=== PATIENT | female | born 1955 | race Caucasian/White ===

== ENCOUNTER 2016-07-26 14:16 | Inpatient (IN) | payer MEDICARE ==
[2016-07-26] MEDS ORDERED: ASPIRIN (CHEWABLE) 81 MG TAB PO ONE (14:25)
[2016-07-26] MEDS ORDERED: IPRATROPIUM/ALBUTEROL 3 ML VIAL NEB ONE ×2 (14:25→17:00)
--- NOTE | 2016-07-26 14:50 | ED.PDOC ---
History of Present Illness - General Chief Complaint: Respiratory Problem Stated Complaint: dyspnea Time Seen by Provider: 07/26/16 14:20 Source: patient Exam Limitations: no limitations - History of Present Illness Initial Comments: Patient presents with increasing dyspnea for several days. Has COPD, denies cardiac hx. Says she was treated for pneumonia up until one week ago and believes that she still has it. Has chronic cough but no changes in that. Smokes 1-2 packs per day. She says she smoked more today than usual. No chest pain. Says she has had 3 strokes and hx of "blood clots" for which she takes Eloquis. Allergies/Adverse Reactions: Allergies NO KNOWN ALLERGY Allergy (Verified 03/06/16 19:13) Home Medications: Ambulatory Orders Albuterol Inhaler [Ventolin Hfa Inhaler] 1 puff INH QID PRN 11/10/15 Albuterol Sulfate Nebs [Proventil Nebs] 2.5 mg INH BID 11/10/15 Aspirin [Ryan Low Dose] 81 mg PO DAILY 11/10/15 Budes/Formoterol INH 160/4.5 [Symbicort Inhaler 160/4.5] 2 puff INH BID Lisinopril 10 mg PO DAILY 11/10/15 Mirtazapine [Remeron] 15 mg PO BEDTIME 11/10/15 Pravastatin Sodium 10 mg PO BEDTIME 11/10/15 QUEtiapine FUMARATE [SEROquel] 100 mg PO BEDTIME 11/10/15 Apixaban [Eliquis] 2.5 mg PO BID 03/06/16 Tramadol HCl 50 mg PO Q6HRS PRN 07/26/16 Past Medical History (General) - Patient Medical History Hx Stroke: Yes - last episode 2014 Hx of COPD: Yes Hx Cardiac Disorders: Yes - Hx DVT Hx Hypertension: Yes Hx Diabetes: No Hx Gastroesophageal Reflux: Yes Hx MRSA: Yes - R ankle wound MRSA Source:: Wound - Vaccination History Hx Influenza Vaccination: Yes - 2016 Hx Pneumococcal Vaccination: Yes - Social History Hx Tobacco Use: Yes - Quit 02/2016 Family Medical History - Family History Mother Family History: No Known Living Status: Physical Exam - Physical Exam General Appearance: Alert Ears, Nose, Throat: normal ENT inspection Neck: non-tender, full range of motion, supple Respiratory: wheezing, other - expiratory wheezing in all lung [place] Cardiovascular/Chest: tachycardia Peripheral Pulses: radial,right: 2+, radial,left: 2+, dorsalis pedis,right: 2+, dorsalis pedis,left: 2+ Gastrointestinal/Abdominal: normal bowel sounds, non tender, soft Extremity: non-tender, no pedal edema Neurologic: no motor/sensory deficits Skin Exam: normal color Lymphatic: no adenopathy Progress - Progress Progress: 07/26/16 16:57 EKG showed sinus tachycardia. Cardiac enzymes negative. CXR showed no acute disease. Patient given duonebs x two. ABG showed pO2 at 63 mmHg while on 3L of oxygen by NC. Solumedrol 125 mg IV x one given. Patient increased to 5L by NC. Admitted for hypoxia, tachycardia, and increased oxygen secondary to COPD exacerbation. Rocephin 1 gram IV x one given in ER. Laboratory Tests 07/26/16 07/26/16 14:47 15:32 WBC 11.7 H RBC 4.40 Hgb 13.9 Hct 43.1 MCV 98.1 MCH 31.6 H MCHC 32.2 L RDW 16.6 H Plt Count 304 MPV 5.9 L Absolute Neuts (auto) 7.90 H Absolute Lymphs (auto) 2.70 Absolute Monos (auto) 0.70 Absolute Eos (auto) 0.30 Absolute Basos (auto) 0.10 Neutrophils % 67.9 Lymphocytes % 22.9 Monocytes % 6.1 Eosinophils % 2.4 Basophils % 0.7 PT 10.8 INR 0.960 D-Dimer, Quantitative < 230 pCO2 42 pO2 63 L HCO3 27.6 ABG pH 7.440 ABG O2 Saturation 93.8 L ABG Base Excess 3.5 ABG Deoxyhemoglobin 6.1 H Oxyhemoglobin % 91.3 L Carboxyhemoglobin % 2.2 H Methemoglobin % Sat 0.5 Calc Total Hemoglobin 13.0 Sodium 137 Potassium 5.1 H Chloride 102 Carbon Dioxide 27 Anion Gap 13.1 BUN 20 H Creatinine 0.87 BUN/Creatinine Ratio 23.0 H Random Glucose 111 H Serum Osmolality 277.1 Calcium 9.0 Total Bilirubin 0.7 AST 24 ALT 26 Alkaline Phosphatase 70 Creatine Kinase 33 CK-MB (CK-2) 1.9 CK-MB (CK-2) % Not Reportable Troponin I < 0.02 B-Natriuretic Peptide 16.2 Serum Total Protein 6.4 Albumin 3.6 Globulin 2.8 Albumin/Globulin Ratio 1.3 Departure - Departure Clinical Impression: Hypoxemia, Obstructive chronic bronchitis with exacerbation, Tachycardia Disposition: Admit Patient Condition: Good Departure Forms: ED Discharge - Pt. Copy, Patient Portal Self Enrollment Diet: other - as per hospitalist Activity: increase activity as tolerated Home Medications: Ambulatory Orders Albuterol Inhaler [Ventolin Hfa Inhaler] 1 puff INH QID PRN 11/10/15 Albuterol Sulfate Nebs [Proventil Nebs] 2.5 mg INH BID 11/10/15 Aspirin [Ryan Low Dose] 81 mg PO DAILY 11/10/15 Budes/Formoterol INH 160/4.5 [Symbicort Inhaler 160/4.5] 2 puff INH BID Lisinopril 10 mg PO DAILY 11/10/15 Mirtazapine [Remeron] 15 mg PO BEDTIME 11/10/15 Pravastatin Sodium 10 mg PO BEDTIME 11/10/15 QUEtiapine FUMARATE [SEROquel] 100 mg PO BEDTIME 11/10/15 Apixaban [Eliquis] 2.5 mg PO BID 03/06/16 Tramadol HCl 50 mg PO Q6HRS PRN 07/26/16
--- NOTE | 2016-07-26 15:28 | RAD ---
EXAM DESCRIPTION: Chest,2 Views CLINICAL HISTORY: dyspnea, recent hx of pneumonia COMPARISON: Chest radiographs 03/06/2016. TECHNIQUE: PA, lateral views. FINDINGS: Lungs: Hyperinflation bilaterally. Minimally prominent interstitial markings. No consolidation. Pleural spaces: No pleural effusion or pneumothorax. Heart: No enlargement Pulmonary Vascularity: Not increased. Mediastinum: No widening. Aorta: Not tortuous. Bony Thorax/Spine: Decreased bone density. Multiple levels of disc space narrowing. Anterior endplate ridging. No acute bony abnormality. Monitoring leads on the chest. IMPRESSION: No radiographic evidence of acute cardiopulmonary disease. Chronic interstitial markings in the lungs and air trapping could indicate emphysema. Stable since February 2016. Electronically signed by: Devin Vazquez MD 07/26/2016 3:27 PM CDT
[2016-07-26] MEDS ORDERED: methylPREDNISolone SODIUM SUC 125 MG/2 ML VIAL IV ONE (15:30)
[2016-07-26] MEDS ORDERED: cefTRIAXone SODIUM 1 GM in SODIUM CHL 0.9% 50ML MIN-BAG+ 50 ML IVPB ONE (16:56)
[2016-07-26] MEDS ORDERED: SODIUM CHL 0.9% 50ML MIN-BAG+ 50 ML IVPB ONE (17:10)
[2016-07-26] MEDS ORDERED: cefTRIAXone SODIUM 1 GM VIAL ONE (17:10)
--- NOTE | 2016-07-26 18:20 | HP ---
SUPERVISING PHYSICIAN: Owen Odonnell M.D. CHIEF COMPLAINT: I couldn't breathe. HISTORY OF PRESENT ILLNESS: This is a 61 year-old female patient who presented to the Emergency Room today after increasing dyspnea over the last 4 days. She has a significant history of chronic obstructive pulmonary disease and was recently in [facility] for pneumonia. She was discharged on some oral steroids and antibiotics. She moved to [place] about 6 months ago. She said she just never quite got over her upper respiratory infection when she left there. In the Emergency Room, her ABGs showed a PO2 of 63 with PCO2 of 42 and 93% oxygen saturation on her blood gas. Vital signs: Heart rate went up as high as 120 and oxygen saturations got as low as 94 on 2 liters nasal cannula. She was tachypneic with a respiratory rate of 24. She received breathing treatments as well as IV steroids. WBCs were elevated at 11.7, potassium was slightly high at 5.1 with glucose 111. All of the rest of her chemistries were within normal limits. Cardiac enzymes were negative. I was called for hospital admission. PAST MEDICAL HISTORY: 1. Hypertension. 2. Cerebrovascular accident times 4 with right sided weakness and memory loss. 3. Chronic obstructive pulmonary disease. 4. Pneumonia. 5. Asthma. 6. Arthritis. 7. Chronic back pain. 8. Hepatitis C. PAST SURGICAL HISTORY: 1. Tubal ligation. OUTPATIENT MEDICATIONS: Per the EMR and awaiting verification. ALLERGIES: NO KNOWN DRUG ALLERGIES. CODE STATUS: DO NOT RESUSCITATE. SOCIAL HISTORY: She just recently moved to [place] from [place]. She lives with her boyfriend for about 12 years. She smokes 1/2 pack of cigarettes daily. She drinks 1 to 2 bottles of Vodka weekly. She has a remote history of IV drug use. She stopped using IV drugs 20 years ago. REVIEW OF SYSTEMS: Denies fever, chills or fatigue. HEENT: Denies sinus symptoms, ear pain, vision changes or sore throat. CARDIAC: Denies chest pain, palpitations or tachycardia. RESPIRATORY: Complains of cough, wheezing and dyspnea. ABDOMEN: Denies abdominal pain, nausea, vomiting or diarrhea. GENITOURINARY: Denies hematuria, dysuria or nocturia. NEUROLOGIC: Denies headaches, dizziness or seizures. PHYSICAL EXAMINATION: VITAL SIGNS: She is afebrile, heart rate between 110 and 120, blood pressure 146/93, respiratory rate has ranged between 16 and 24, O2 sat has ranged between 94 and 98%. GENERAL: This is a 61 year-old female patient who is lying in her hospital bed. She is in no acute distress. HEENT: Normocephalic and atraumatic. Pupils are equal and reactive. Oropharynx is clear. Oral mucous membranes are moist. NECK: Supple without mass. Trachea is midline. There is no jugular venous distention. CHEST: Diminished bilaterally and a few expiratory wheezes throughout. Visibly dyspneic with exertion. There is equal rise and fall of the chest with inspiration and expiration. CARDIOVASCULAR: Regular rate and rhythm. ABDOMEN: Soft, nondistended, non-tender. Bowel sounds are positive. EXTREMITIES: No cyanosis, clubbing or edema. NEUROLOGIC: She is awake and alert. She has trouble remembering recent events. She says that is due to her strokes, but she is oriented times three. LABORATORY: Labs are as per the History of Present Illness. RADIOLOGY: Chest x-ray shows emphysematous lungs with chronic interstitial markings in the lung and air trapping. There is no evidence of acute cardiopulmonary disease. All other labs and films have been reviewed via the EMR. ASSESSMENT: 1. Exacerbation of chronic obstructive pulmonary disease. 2. Mild leukocytosis. 3. Recent hospitalization due to pneumonia approximately 1 to 2 weeks ago. 4. Cerebrovascular accident times four. 5. Tobacco abuse. 6. Alcohol abuse. 7. Hepatitis C with a 20 year ago history of IV drug use. PLAN: We will place the patient in Observation. Will continue present supportive care. I have started her on Zithromax and Rocephin. We will request her records from [facility] in [place]. I have given her IV steroids as well as scheduled and p.r.n. breathing treatments. She has a nicotine patch. She is on Eliquis and that will be sufficient for DVT prophylaxis as well as I put her on PPI for ulcer prophylaxis. We will also need to establish care with [facility] as she does not have a local primary care physician. We will continue to monitor the patient closely and followup as needed. Dr. Odonnell is the collaborating physician. #[id number] [facility]
[2016-07-26] MEDS ORDERED: ALBUTEROL SULFATE 2.5 MG/3 ML VIAL NEB PRN (19:26)
[2016-07-26] MEDS ORDERED: ONDANSETRON INJ 4 MG/2 ML VIAL IV PRN (19:26)
[2016-07-26] MEDS ORDERED: IV SET AND CAP CHANGE INJ INJ SCH (19:30)
[2016-07-26] MEDS ORDERED: PANTOPRAZOLE SODIUM IV 40 MG VIAL IV SCH (19:30)
[2016-07-26] MEDS ORDERED: GLUCAGON INJ 1 MG VIAL SUBCU PRN (19:30)
[2016-07-26] MEDS ORDERED: DEXTROSE 50% 25 GM/50 ML SYG IV PRN (19:30)
[2016-07-26] MEDS ORDERED: traMADol HCL 50 MG TAB PO PRN (19:31)
--- NOTE | 2016-07-26 19:34 | PCM.CORE ---
Physician DVT/VTE - Prophylaxis Currently: Patient already on anticoagulation therapy - Nurse DVT Assessment & Total Each Risk Factor Represents 2 Points: Age 60-74 Each Risk Factor Represents 1 Point: Medical PT at Bed Rest Each Risk Factor is 1 Point: Serious Lung disease (pnemonia <1month, COPD, emphysema,etc) DVT Assessment Score: 4 - 3-4 High Risk Treatments: Early Ambulation *, Sequential Compression Device
[2016-07-26] MEDS: BUDESONIDE/FORMOTEROL 160/4.5 60 PUFF/6 GM INH INH SCH (19:40)
[2016-07-26] MEDS ORDERED: IPRATROPIUM/ALBUTEROL 3 ML VIAL INH SCH (20:00)
[2016-07-26] MEDS ORDERED: PRAVASTATIN SODIUM 20 MG TAB ONE (20:01)
[2016-07-26] MEDS ORDERED: QUEtiapine FUMARATE 100 MG TAB ONE (20:01)
[2016-07-26] MEDS: SODIUM CHLORIDE 0.9% (FLUSH) 10 ML SYG IV SCH (20:04)
[2016-07-26] MEDS: NICOTINE PATCH 21 MG TD SCH (20:14)
[2016-07-26] MEDS: methylPREDNISolone SODIUM SUC 125 MG/2 ML VIAL IV SCH (20:17)
[2016-07-26] MEDS: QUEtiapine FUMARATE 25 MG TAB PO SCH (20:33)
[2016-07-26] MEDS: MIRTAZAPINE 15 MG TAB PO SCH (20:33)
[2016-07-26] MEDS: APIXABAN 2.5 MG TAB PO SCH (20:34)
[2016-07-26] MEDS ORDERED: NON-FORMULARY MEDICATION 1 EA MIS (Pravastatin Sodium [Pravastatin Sodium] 10 MG) PO SCH (21:00)
[2016-07-26] MEDS: INSULIN LISPRO 100 UNITS/ML PEN SUBCU SCH (21:41)
[2016-07-26] MEDS: ACETAMINOPHEN 325 MG TAB PO PRN (23:17)
[2016-07-27] MEDS: SODIUM CHLORIDE 0.9% (FLUSH) 10 ML SYG IV PRN (04:25)
[2016-07-27] MEDS: methylPREDNISolone SODIUM SUC 125 MG/2 ML VIAL IV SCH (04:26)
--- NOTE | 2016-07-27 06:48 | RAD ---
EXAM: Two view chest. INDICATION: Chest pain. COMPARISON: Chest x-ray: 07/26/2016. FINDINGS: Cardiac silhouette: Unremarkable. Lazara: Unremarkable. Lobar consolidation: None. Pleural effusion: None. Pneumothorax: None. Other: The lungs appear emphysematous Bones: Unremarkable. Other: None. IMPRESSION: Emphysematous appearing lungs Electronically signed by: Adam Acuña MD 07/27/2016 6:47 AM CDT
[2016-07-27] MEDS: INSULIN LISPRO 100 UNITS/ML PEN SUBCU SCH ×4 (07:34→21:20)
[2016-07-27] MEDS: IPRATROPIUM/ALBUTEROL 3 ML VIAL NEB SCH ×4 (08:45→19:40)
[2016-07-27] MEDS: LISINOPRIL 10 MG TAB PO SCH (08:57)
[2016-07-27] MEDS: APIXABAN 2.5 MG TAB PO SCH ×2 (08:58→20:31)
[2016-07-27] MEDS: SODIUM CHLORIDE 0.9% (FLUSH) 10 ML SYG IV SCH ×2 (08:58→20:32)
[2016-07-27] MEDS: ASPIRIN EC 81 MG TAB PO SCH (08:58)
[2016-07-27] MEDS ORDERED: SODIUM CHLORIDE 0.9% 1000ML 0 ML ONE (09:11)
[2016-07-27] MEDS: ACETAMINOPHEN 325 MG TAB PO PRN ×2 (09:14→21:16)
[2016-07-27] MEDS: BUDESONIDE/FORMOTEROL 160/4.5 60 PUFF/6 GM INH INH SCH ×2 (09:32→19:45)
--- NOTE | 2016-07-27 11:51 | PN ---
DATE: 07/27/16 SUPERVISING PHYSICIAN: Owen Odonnell M.D. SUBJECTIVE: The patient is lying in her hospital bed. She is in no acute distress. She states that her shortness of breath is much improved since yesterday but she still gets quite dyspneic with exertion, but she is feeling much better. She denies chest pain, nausea or vomiting or headache. OBJECTIVE: VITAL SIGNS: She is afebrile, heart rate 116, blood pressure 149/88 , respiratory rate 18, O2 sat 93% on 2.5 liters nasal cannula. RESPIRATORY: Essentially clear to auscultation bilaterally, somewhat diminished at the bases. CARDIAC: Regular rate and rhythm. ABDOMEN: Soft, non-tender, nondistended. Bowel sounds are positive. EXTREMITIES: No cyanosis, clubbing or edema. NEUROLOGIC: She is awake, alert and oriented times three. LABORATORY: Slight decrease in her WBCs to 11.3. Sodium is slightly low at 132 , potassium has come down to 5.0, BUN 26, blood sugar 190. Chest x-ray shows no changes and emphysematous lungs. All other labs and films have been reviewed via the EMR. ASSESSMENT: 1. Exacerbation of chronic obstructive pulmonary disease. 2. Mild leukocytosis. 3. Recent hospitalization due to pneumonia approximately 1 to 2 weeks ago. 4. Cerebrovascular accident times four. 5. Tobacco abuse. 6. Alcohol abuse. 7. Hepatitis C with a 20 year ago history of IV drug use. PLAN: We will continue present supportive care. She will continue in Observation for now. Most likely, her exacerbation was maybe due to her steroid therapy being too short. I will continue with her present antibiotics. I have very slowly tapered off her IV steroids. I have also placed her on fluid restrictions. Will again need to try to get her records from [facility] in [place]. I have ordered an ambulation study. We will continue to monitor the patient closely and followup as needed. #[id number] [facility]
[2016-07-27] MEDS: methylPREDNISolone SODIUM SUC 40 MG/ML VIAL IV SCH ×2 (12:26→17:49)
[2016-07-27] MEDS: HYDROcodone 10MG/APAP 325MG 1 EA TAB PO PRN (14:54)
[2016-07-27] MEDS ORDERED: PANTOPRAZOLE SODIUM IV 40 MG VIAL ONE (19:29)
[2016-07-27] MEDS ORDERED: PRAVASTATIN SODIUM 20 MG TAB ONE (19:29)
[2016-07-27] MEDS: NICOTINE PATCH 21 MG TD SCH (19:55)
[2016-07-27] MEDS: MIRTAZAPINE 15 MG TAB PO SCH (20:31)
[2016-07-27] MEDS: QUEtiapine FUMARATE 25 MG TAB PO SCH (20:31)
[2016-07-27] MEDS: PRAVASTATIN SODIUM 20 MG TAB PO SCH (20:32)
[2016-07-27] MEDS ORDERED: PANTOPRAZOLE SODIUM IV 40 MG VIAL IV SCH (21:00)
[2016-07-28] MEDS: SODIUM CHLORIDE 0.9% (FLUSH) 10 ML SYG IV PRN ×2 (00:08→06:21)
[2016-07-28] MEDS: methylPREDNISolone SODIUM SUC 40 MG/ML VIAL IV SCH ×4 (00:09→21:05)
[2016-07-28] MEDS: HYDROcodone 10MG/APAP 325MG 1 EA TAB PO PRN ×2 (03:04→15:35)
[2016-07-28] MEDS: INSULIN LISPRO 100 UNITS/ML PEN SUBCU SCH ×4 (08:35→21:07)
[2016-07-28] MEDS: IPRATROPIUM/ALBUTEROL 3 ML VIAL NEB SCH ×4 (09:00→21:25)
[2016-07-28] MEDS: APIXABAN 2.5 MG TAB PO SCH ×2 (09:24→21:04)
[2016-07-28] MEDS: SODIUM CHLORIDE 0.9% (FLUSH) 10 ML SYG IV SCH ×2 (09:24→21:04)
[2016-07-28] MEDS: LISINOPRIL 10 MG TAB PO SCH (09:24)
[2016-07-28] MEDS: ASPIRIN EC 81 MG TAB PO SCH (09:24)
[2016-07-28] MEDS: BUDESONIDE/FORMOTEROL 160/4.5 60 PUFF/6 GM INH INH SCH ×2 (10:12→21:40)
[2016-07-28] MEDS: AZITHROMYCIN 250 MG TAB PO SCH (15:34)
--- NOTE | 2016-07-28 15:39 | PN ---
DATE: 07/28/16 SUBJECTIVE: The patient is sitting up on the side of the bed. She has a very loud and productive cough with a yellowish-vidal sputum. We will collect some to allow gram stain, micro exam, as well as culture to be obtained. Underlying infection needs to be approached, especially with the patient being on corticosteroids for the significant exacerbation of the chronic obstructive pulmonary disease. She has not been walking very much, but is encouraged to walk and we are still awaiting an ambulation study to help determine the amount of oxygen she requires, especially while at home when exerting. She is normally on 3 liters of oxygen continuously at home. She admits to having been off of cigarettes for a while, but also admits that she restarted smoking about a month or 2 ago and is encouraged to stop completely. OBJECTIVE: VITAL SIGNS: Afebrile. Pulse 91. Blood pressure 123/88. Respirations 18. Pulse oximetry 96% on 2.5 or 3 liters nasal cannula. GENERAL : The patient is awake and alert. She admits to having moved here from the [facility] about six months ago. She does not have a local physician to assist with ongoing followup and this is to be determined. She states she has not walked up and down the halls yet to determine her degree of desaturation on oxygen while exerting herself. She admits to having started smoking again recently and is encouraged to stop. LUNGS: Bilateral diminished breath sounds. HEART: Regular. ABDOMEN: Soft. EXTREMITIES: No significant pedal edema at this time. The patient is still short of breath to the point where it is hard for her to complete a sentence completely without taking a breath. LABORATORY: White count is up to 18,100 with 95% neutrophils, hemoglobin 12. This is on corticosteroids. Initial blood gas showed low PO2. Chemistries showed potassium 5.1, BUN 29 and 26 yesterday. Creatinine 1.08. Fasting glucose 159. Liver enzymes normal. Albumin 3.6. Urine yesterday was generally clean. No cultures obtained, awaiting sputum culture. Repeat chest x -ray fails to show any significant changes other than fairly significant emphysema noted. ASSESSMENT: 1. Chronic obstructive pulmonary disease with an acute exacerbation, requiring corticosteroids along with pulmonary hygiene and bronchodilators to assist. 2. Chronic hypoxia on home oxygen, awaiting ambulation study to determine degree of oxygenation required while exerting herself. 3. Leukocytosis, possibly aggravated by the corticosteroid administration. 4. History of cerebrovascular accident in the past with minimal residual, yet the patient is having a hard time with memory. 5. History of pneumonia 2 to 3 weeks ago, being treated at [facility] in [place]. 6. Chronic tobacco abuse, restarting. 7. Chronic alcohol abuse. 8. History of hepatitis C with a 25 year history of IV drug use. PLAN: Await culture results of the characteristics of the sputum and initiate azithromycin p.o. in an effort to continue the treatment when stable as an outpatient for treatment for underlying acute bronchitis. We will decrease corticosteroids overnight and continue to observe increased activity level and await ambulation study. Anticipate outpatient followup in local clinic with appointment to be made tomorrow for close followup in the future. Strongly encouraged to stop all smoking. #[id number] [facility]
[2016-07-28] MEDS: PANTOPRAZOLE SODIUM TAB 40 MG PO SCH (16:55)
[2016-07-28] MEDS: NICOTINE PATCH 21 MG TD SCH (20:20)
[2016-07-28] MEDS: MIRTAZAPINE 15 MG TAB PO SCH (21:03)
[2016-07-28] MEDS: ACETAMINOPHEN 325 MG TAB PO PRN (21:03)
[2016-07-28] MEDS: PRAVASTATIN SODIUM 20 MG TAB PO SCH (21:03)
[2016-07-28] MEDS: QUEtiapine FUMARATE 25 MG TAB PO SCH (21:03)
[2016-07-29] MEDS: HYDROcodone 10MG/APAP 325MG 1 EA TAB PO PRN ×2 (03:11→15:40)
[2016-07-29] MEDS: PANTOPRAZOLE SODIUM TAB 40 MG PO SCH (06:23)
[2016-07-29] MEDS: INSULIN LISPRO 100 UNITS/ML PEN SUBCU SCH ×3 (08:01→17:45)
[2016-07-29] MEDS: IPRATROPIUM/ALBUTEROL 3 ML VIAL NEB SCH ×3 (08:21→16:37)
[2016-07-29] MEDS: BUDESONIDE/FORMOTEROL 160/4.5 60 PUFF/6 GM INH INH SCH (08:35)
[2016-07-29] MEDS: LISINOPRIL 10 MG TAB PO SCH (08:59)
[2016-07-29] MEDS: ASPIRIN EC 81 MG TAB PO SCH (08:59)
[2016-07-29] MEDS: APIXABAN 2.5 MG TAB PO SCH (08:59)
[2016-07-29] MEDS: SODIUM CHLORIDE 0.9% (FLUSH) 10 ML SYG IV SCH (09:00)
[2016-07-29] MEDS: methylPREDNISolone SODIUM SUC 40 MG/ML VIAL IV SCH (09:20)
[2016-07-29 15:03] VITALS: BP 104/69; TEMP 97.9
[2016-07-29] MEDS: AZITHROMYCIN 250 MG TAB PO SCH (15:47)
--- NOTE | 2016-07-29 17:41 | DS ---
DISCHARGE DIAGNOSIS: 1. Chronic obstructive pulmonary disease with an acute exacerbation requiring corticosteroids along with pulmonary hygiene and bronchodilators to assist in treatment. 2. Chronic hypoxia using home oxygenation with ambulation study showing desaturation even on oxygen, but close attention to avoid over oxygenation. 3. Leukocytosis showing improvement probably aggravated by the corticosteroid administration. 4. History of cerebrovascular accident in the past with some residual with decreased memory. 5. History of pneumonia 2 to 3 weeks ago having been treated at [facility] currently stable. 6. Chronic tobacco abuse having restarted and encouraged to stop completely. 7. Acute bronchitis with purulent sputum treated with Azithromycin. 8. Chronic alcohol abuse. 9. History of hepatitis C with a 25 year history of IV drug use. HISTORY OF PRESENT ILLNESS: This 61 year-old white female was admitted to the hospital from the Emergency Room because of worsening shortness of breath for the 4 days prior to admission. She has had a longstanding history of COPD and was recently at [facility] in [place] for a pneumonia treatment course. She has moved to [place] about 6 months ago and her primary care doctor is still in [place], so she needs to acquire close followup locally as well. Significant cough with purulent material is noted in the Emergency Room. She was noted to have a low PO2 with heart rate rapid and saturation 94% on 2 liters nasal cannula. She had a tachypnea of 24 respirations per minute and required bronchodilators and corticosteroid parenterally. The patient was admitted to the hospital for specific treatment and followup to help prevent her symptoms from specifically worsening. LABORATORY: White count was up to 18,100 with 95% neutrophils down to 17, 200 at discharge. INR of 0.96. D-dimer was low. Blood gas did show a PO2 of 63, pH 7.4, bicarb 27.6. Chemistries showed potassium was up to 5.1 and was down to 4.8 at discharge. BUN was 36 while creatinine of 1.03. Glucose 107, calcium 9.3. Liver enzymes normal. Albumin 3.6. Beta natriuretic peptide 16.2 , troponin zero. Urine generally clean. No cultures obtained. Repeat chest x-ray showed no acute findings other than COPD with flattening of the diaphragmatic dome and over aeration of the lungs. HOSPITAL COURSE: The patient was feeling dramatically improved on the morning of discharge and was ready for continued followup in the outpatient department. Arrangements for an outpatient clinic for followup is to be handled as she is in the discharge proceedings. Special followup at [facility] is encouraged. PLAN: The patient is discharged home to have followup in the [facility] in a week. She will continue her home medications to which are added Tylenol #3 p.r.n. back pain, Azithromycin 250 mg daily for 5 days, Naprosyn 500 mg b.i.d. as needed for pain, and prednisone 10 mg to be taken 2 a day for 5 days, then 1 a day until gone. Increase activity level. Good nutritious diet is encouraged. She is to stop all smoking completely. Increase exercise and abilities. Use oxygen at home yet avoid too much. Drink plenty of fluids. Return if not improving. #[id number] [facility]
[2016-07-29 18:35] VITALS: O2SAT 97
== END 2016-07-29 18:00 | disposition home or self-care (01) | DRG 191 ==
LOC: ER 14:16 → MS 18:20 → INTOOBSV 18:20 → OBSVTOIN 07-28 15:02
PROVIDERS: ADMIT Nurse Practitioner Acute Care; ATTEND Emergency Medicine
DX: J44.1 Chronic obstructive pulmonary disease with (acute) exacerbation (principal); I69.351 Hemiplegia and hemiparesis following cerebral infarction affecting right dominant side; J20.9 Acute bronchitis, unspecified; E87.5 Hyperkalemia; R09.02 Hypoxemia; D72.829 Elevated white blood cell count, unspecified; T38.0X5A Adverse effect of glucocorticoids and synthetic analogues, initial encounter; I10 Essential (primary) hypertension; K21.9 Gastro-esophageal reflux disease without esophagitis; I69.311 Memory deficit following cerebral infarction; J45.909 Unspecified asthma, uncomplicated; M19.90 Unspecified osteoarthritis, unspecified site; G89.29 Other chronic pain; M54.9 Dorsalgia, unspecified; B19.20 Unspecified viral hepatitis C without hepatic coma; F17.210 Nicotine dependence, cigarettes, uncomplicated; F10.10 Alcohol abuse, uncomplicated; Z87.01 Personal history of pneumonia (recurrent); Y92.230 Patient room in hospital as the place of occurrence of the external cause; Z99.81 Dependence on supplemental oxygen; Z66 Do not resuscitate; Z86.718 Personal history of other venous thrombosis and embolism; Z79.01 Long term (current) use of anticoagulants; Z79.82 Long term (current) use of aspirin; Z79.899 Other long term (current) drug therapy; Z86.14 Personal history of Methicillin resistant Staphylococcus aureus infection